=== PATIENT | male | born 1945 | race Caucasian/White ===

== ENCOUNTER 2023-03-20 06:27 | Day surgery (SDC) | payer OTHER ==
[2023-03-05 12:14] LABS: Absolute Lymphocytes (CBC) 1.5 K/uL (0.7-4.9); Hematocrit 45.1 % (39.6-49.0); Lymphocytes % 22.3 % (15.3-44.8); MCV 90.2 fL (80-100); MPV 8.8 fL (7.6-11.3); Platelets 140 thou/uL (152-406)
[2023-03-05 12:24] LABS: Protime INR 1.01
[2023-03-05 12:32] LABS: Potassium 4.1 mEq/L (3.5-5.1)
--- NOTE | 2023-03-05 12:38 | RAD REPORT ---
EXAM DESCRIPTION: Sidney Rodriguez (2 Views)03/05/2023 12:12 pm CLINICAL HISTORY: Preop. Hypertension COMPARISON: 2017 FINDINGS: A few areas of scarring are present within the lung bases. The lungs appear clear of acute infiltrate. The heart is normal size IMPRESSION: No acute abnormalities displayed
--- NOTE | 2023-03-07 16:56 | EKG ---
Test Date: 2023-03-05 Test Time: 12:49:24 Warehouse And Receiving Supervisor: JOANIE MEASUREMENT RESULTS: Intervals: Rate: 85 NC: 146 QRSD: 80 QT: 368 QTc: 437 [place]: P: 65 NC: 146 QRS: -8 T: 69 INTERPRETIVE STATEMENTS: Normal sinus rhythm Normal ECG Compared to ECG 09/23/2016 16:49:02 No significant changes Electronically Signed On 03-07-23 16:52:05 CUSTOMER SERVICE VOICE by Tony Escobar
[2023-03-20] MEDS ORDERED: NA CHLORIDE 0.9% 1,000 ML ONE (06:59)
[2023-03-20] MEDS ORDERED: propofoL 200 MG/20 ML VIAL IV ONE (07:00)
[2023-03-20] MEDS ORDERED: LIDOCAINE 1% MPF 5 ML VIAL ONE (07:00)
[2023-03-20] MEDS ORDERED: FENTANYL CITR 100 MCG/2 ML ONE (07:00)
[2023-03-20] MEDS ORDERED: ONDANSETRON 4 MG/2 ML VIAL ONE (07:00)
[2023-03-20] MEDS: CEFAZOLIN SODIUM 2 GM/VIAL ONE ×2 (07:48→07:50)
[2023-03-20] MEDS ORDERED: EPHEDRINE SULF 50 MG/ML VIAL ONE (08:01)
--- NOTE | 2023-03-20 09:17 | OP ---
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 Principal Procedures: 1.Transrectal ultrasound-guided placement of fiducial markers. 2.Transrectal ultrasound-guided incomplete insertion of SpaceOAR gel. Indication For Procedure: Mr. Li is a 77-year-old gentleman who presented to the [facility] with an elevated PSA and underwent biopsy revealing high-risk adenocarcinoma of the prostate, Gleaso n 4 + 4. He was counseled on options and ultimately elected to proceed with radiation therapy, and f iducial markers were requested along with SpaceOAR gel insertion in preparation. Procedure In Detail: The patient was consented in the preoperative holding area before being transfe rred to the operative suite, where general anesthesia was induced. He was given Ancef 2 g IV antimic robial prophylaxis, and pneumo boots were provided for DVT prophylaxis. He was placed in the high li thotomy position, padded and secured to the table appropriately. His genitalia were elevated out of the perineal region using an Ioban drape, and his perineum was prepped with Betadine. The transrecta l ultrasound probe had been inserted via his anus into his rectum free hand with ease and the prostat e was visualized. The self-retaining Stepper device was used to hold the ultrasound probe in the paige ired position, where I was able to visualize the prostate from the perineal region all the way to the seminal vesicles and the bladder neck in both axial as well as sagittal dimensions. I then began th e case using a fiducial marker, which was placed via the left periurethral region and it was placed u nder direct ultrasound visualization and guidance into the anterior portion of the left laurie-prostate in the mid gland region. Once this was successfully placed, I similarly targeted the right laurie-pro state in the mid gland anterior region also and placed a second fiducial marker on that side. I then turned my attention to placement of these SpaceOAR gel and begun with the SpaceOAR needle cristal ched to a syringe of normal saline. I was able to guide the needle into the prerectal fat plane unde r ultrasound guidance taking care to avoid entry into the rectum until I was able to reach the mid ba se region of the prostate as visualized in the sagittal dimension. I then switched to the axial dime nsion to confirm the needle was indeed placed in the midline before aspirating and receiving no blood or succus. I then hydrodissected a bit with saline, and while the saline did dissect largely in the midline, some of it did fall off to the patient's left side a bit. As a result, I attempted to repo sition the needle and hydrodissect to open the space a bit more to the patient's right side before ul timately connecting the SpaceOAR injection components and beginning to inject the SpaceOAR gel. Unfo rtunately, about one-third [address] way into the injection process, the device component fell apart, wh ich prohibited simultaneous continuous injection of the material and resulted in the gel freezing wit hin the delivery device and needle. Only about a third of the gel did successfully insert between th e base of the prostate and the rectum as visualized ultrasonographically. However, at this point, be cause the ultrasound topographical references were now distorted, and since the needle itself which w as in proper position was clogged with the gel, further attempts to place any additional SpaceOAR gel were unwise; so I removed the needle and did not make any further effort at SpaceOAR gel insertion. As a result, the patient was then cleansed of the Betadine from his perineum, and he was taken out o f the lithotomy position. He was then awakened from general anesthesia before being transferred to a stretcher and then transferred to the recovery room in good condition. Complications: Technical failure in the composition/putting together of the SpaceOAR gel kit, result ing in inability to adequately insert the SpaceOAR gel. Discharge Disposition: Subsequent radiation oncology simulation may proceed to see if potentially si nce a third of the gel was inserted, there will be adequate buffer for continuation of the radiation oncology without significant enhanced risk to the rectum. If inadequate SpaceOAR gel insertion, consideration must be given to repeat attempt at some point down t he line. WR/MODL Voice ID: [id number] Report ID: [id number]
[2023-03-20 10:04] VITALS: BP 128/73; TEMP 97; O2SAT 97
== END 2023-03-20 09:43 | disposition home or self-care (01) ==
LOC: OR 06:27
PROVIDERS: ATTEND Urology
PROC: 0VH43YZ Insertion of Other Device into Prostate and Seminal Vesicles, Percutaneous Approach (ICD-10-PCS; principal; 2023-03-20 07:30)
DX: C61 Malignant neoplasm of prostate (principal); E11.9 Type 2 diabetes mellitus without complications; I10 Essential (primary) hypertension; E78.00 Pure hypercholesterolemia, unspecified
CPT/HCPCS: 93005; 87088; 85025; 87086; 80048; 36415; 85610; 82947 ×2; 71046; 55874; J2704; J2001; J3010; J2405; J7030

== ENCOUNTER 2023-04-10 06:20 | Day surgery (SDC) | payer OTHER ==
[2023-04-10] MEDS ORDERED: NA CHLORIDE 0.9% 1,000 ML ONE (06:56)
[2023-04-10] MEDS ORDERED: CEFAZOLIN SODIUM 2 GM/VIAL ONE (06:56)
[2023-04-10] MEDS ORDERED: LIDOCAINE 1% MPF 5 ML VIAL ONE (07:37)
[2023-04-10] MEDS ORDERED: propofoL 200 MG/20 ML VIAL IV ONE (07:37)
[2023-04-10] MEDS ORDERED: FENTANYL CITR 100 MCG/2 ML ONE (07:39)
[2023-04-10] MEDS ORDERED: ONDANSETRON 4 MG/2 ML VIAL ONE (07:54)
[2023-04-10 08:48] VITALS: BP 131/87; TEMP 97.4; O2SAT 97
--- NOTE | 2023-04-10 19:31 | OP ---
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 Principal Procedures: Transrectal ultrasonography and transrectal ultrasound-guided SpaceOAR inserti on. Indication For Procedure: This is a 77-year-old gentleman with elevated PSA, diagnosed and found to have high-risk adenocarcinoma of the prostate. He was counseled and ultimately elected radiation the rapy and was desired to have SpaceOAR gel implantation prior to the procedure. He was previously her e and underwent fiducial markers placement as well as SpaceOAR gel insertion, but the procedure was i ncomplete due to failure of the device during insertion. As a result, only about half of the gel was inserted and largely emanated on the patient's left side of the prostate. As a result, the radiatio n oncologist desired repeat SpaceOAR gel insertion and he presents today for that. Procedure In Detail: The patient was consented in the preoperative holding area before being transfe rred to the operative suite where general anesthesia was induced. He was given Ancef 2 g IV antimicr obial prophylaxis, and pneumo boots were provided for DVT prophylaxis. He was placed in the lithotom y position, padded and secured to the table appropriately. His genitalia were elevated out of the pe rineal region using an Ioban drape, and then the transrectal ultrasound probe was placed via his anus into his rectum under direct visualization ultrasonographically. I then used the Stepper device to hold the ultrasound in place and used it to appropriately position the prostate and visualize it from its apex to the seminal vesicles and the bladder. I then targeted visualization in the transverse d imension sagittally to place the injection needle via the perineum beneath the urethra and into the p rerectal fat plane targeting the patient's right side laurie-prostate just next to the midline. I was able to advance the needle in that plane into the mid base region and there was ideal positioning of the needle just lateral to the midline on the right where the pre-placed SpaceOAR gel from before was largely emanating on the left. As a result, I aspirated in that region and received no sign of bloo d or succus or air, and then injected half a cc of saline which did nicely hydrodissect and largely e manate toward the patient's right side. I then connected the SpaceOAR gel insertion component and sl owly injected them under ultrasound guidance to visualize the gel to fill the entirety of the space i nvolving the midline and the right laurie-prostate it from the rectum beautifully. I thus r emoved the needle and applied pressure to the perineum for a slight degree of oozing in that location . The patient was then taken out of the lithotomy position, awakened from general anesthesia, transf erred to a stretcher, and then transferred to the recovery room in good condition. Complications: None. Discharge Disposition: He will be standard pathway following up in 3 to 6 months after completion of his radiation therapy. CHELSY/ALLEN Voice ID: [id number] Report ID: [id number]
== END 2023-04-10 09:40 | disposition home or self-care (01) ==
LOC: OR 06:20
PROVIDERS: ATTEND Urology
PROC: 0VH43YZ Insertion of Other Device into Prostate and Seminal Vesicles, Percutaneous Approach (ICD-10-PCS; principal; 2023-04-10 07:30)
DX: C61 Malignant neoplasm of prostate (principal); E11.9 Type 2 diabetes mellitus without complications; I10 Essential (primary) hypertension; E78.00 Pure hypercholesterolemia, unspecified
CPT/HCPCS: 82947 ×2; 55874; J2704; J2001; J3010; J2405; J7030

== ENCOUNTER 2024-02-01 06:02 | Day surgery (SDC) | payer OTHER ==
[2024-01-28 10:52] LABS: Absolute Eosinophils 0.3 K/uL (0-0.5); Absolute Lymphocytes (CBC) 0.6 K/uL (0.7-4.9); Absolute Monocytes 0.5 K/uL (0.1-1.3); Basophils % 0.3 % (0-1.3); Eosinophils % 5.2 % (0-4.4); Hematocrit 35.5 % (39.6-49.0); Hemoglobin 11.6 g/dL (13.6-17.9); MCHC 32.8 g/dL (32.0-36.0); MCV 88.5 fL (80-100); Monocytes % 9.5 % (3.3-12.3); Nucleated Red Blood Cells % 0.1 % (0-0); Platelets 201 thou/uL (152-406); RBC Red Blood Cell Count 4.01 M/uL (4.33-5.43); Red Cell Distribution Width 16.4 % (12.1-15.2)
[2024-01-28 10:56] LABS: PT Prothrombin Time 11.5 SECONDS (9.4-12.5); PTT, Activated Partial Thromb 32.3 SECONDS (24.3-36.9); Protime INR 1.03
[2024-01-28 11:01] LABS: Anion Gap 9.4 mEq/L (5.0-15.0); Potassium 4.4 mEq/L (3.5-5.1)
--- NOTE | 2024-01-31 09:14 | RAD REPORT ---
EXAMINATION: TWO VIEW CHEST XR CLINICAL INDICATION: pre op pending rotator cuff repair TECHNIQUE: 2 views of the chest was performed. COMPARISON: 03/05/2023 FINDINGS: The lungs are hyperexpanded suggesting COPD. The heart is upper limit of normal in size. No displaced fractures evident. IMPRESSION: COPD is suspected without acute finding identified. The USPSTF recommends annual screening for lung cancer with low-dose computed tomography (LDCT) in ad ults aged 50 to 80 years who have a 20 pack-year smoking history and currently smoke or have quit within the past 15 years. Screening should be discontinued once a person has not smoked for 15 years or develops a health problem that substantially limits life expectancy or the ability or willingness to have curative lung surgery.
--- NOTE | 2024-01-31 12:04 | EKG ---
Test Date: 2024-01-28 Test Time: 10:25:42 Hearing Aid Consultant: MELBA MEASUREMENT RESULTS: Intervals: Rate: 73 ME: 146 QRSD: 84 QT: 404 QTc: 445 [place]: P: 44 ME: 146 QRS: -3 T: 40 INTERPRETIVE STATEMENTS: Normal sinus rhythm with sinus arrhythmia Low voltage QRS Borderline ECG Compared to ECG 03/05/2023 12:49:24 Low QRS voltage now present Electronically Signed On 01-31-24 11:56:13 CDT by Cheko Blackmon
[2024-02-01] MEDS ORDERED: CEFAZOLIN SODIUM 2 GM/VIAL ONE (06:18)
[2024-02-01] MEDS: NA CHLORIDE 0.9% 1,000 ML ONE (06:30)
[2024-02-01] MEDS: DEXTROSE 10%-WATER 500 ML IV ONE (06:46)
[2024-02-01] MEDS ORDERED: dexAMETHasone 10 MG/ML VIAL ONE ×2 (07:12→08:17)
[2024-02-01] MEDS ORDERED: LIDOCAINE 1% MPF 5 ML VIAL ONE (07:12)
[2024-02-01] MEDS ORDERED: EPINEPHRINE 1 MG/ML VIAL ONE (07:13)
[2024-02-01] MEDS ORDERED: FENTANYL CITR 100 MCG/2 ML ONE (07:13)
[2024-02-01] MEDS ORDERED: propofoL 200 MG/20 ML VIAL IV ONE (07:18)
[2024-02-01] MEDS ORDERED: LIDOCAINE 2% MPF 5 ML VIAL ONE (07:18)
[2024-02-01] MEDS ORDERED: ONDANSETRON 4 MG/2 ML VIAL ONE (07:47)
[2024-02-01] MEDS ORDERED: ROCURONIUM 50 MG/5 ML VIAL IV ONE (07:48)
[2024-02-01] MEDS ORDERED: SUGAMMADEX SODIUM 200 MG/2 ML VIAL IV ONE (07:54)
[2024-02-01] MEDS ORDERED: EPHEDRINE SULF 50 MG/ML VIAL ONE (08:24)
[2024-02-01] MEDS: EPINEPHRINE 1 MG/ML VIAL ONE (08:50)
--- NOTE | 2024-02-01 10:14 | P.BOP ---
Preoperative diagnosis: Left shoulder rotator cuff tear, biceps tendinitis, impingement syndrome Postoperative diagnosis: Same, left shoulder SLAP tear Primary procedure: Left shoulder arthroscopic rotator cuff repair Secondary procedure: Left shoulder arthroscopic biceps tenotomy with SLAP debridement Other procedure(s): Left shoulder scopic subacromial decompression Merchandise Pickup/Receiving Associate: NONE,NONE Estimated blood loss: 10 cc Specimen: None Findings: See dictation Anesthesia: General Complications: None Implants: Arthrex 4.75 mm swivel lock x 2 Fluids & blood products: Per anesthesia record Transferred to: Recovery Room Condition: Good
--- NOTE | 2024-02-01 11:00 | RAD REPORT ---
EXAM:Shoulder 1 View HISTORY: S/P ROTATOR CUFF REPAIR COMPARISON: None FINDINGS/IMPRESSION: Single frontal projection submitted of the left shoulder. Moderate soft tissue s welling is seen. Mild degenerative changes are present AC joint glenohumeral joint. No unexpected immediate postoperative finding.
[2024-02-01 11:01] VITALS: O2SAT 95
[2024-02-01 13:18] VITALS: BP 146/84; TEMP 97.3
== END 2024-02-01 12:00 | disposition home or self-care (01) ==
LOC: OR 06:02
PROVIDERS: ATTEND Orthopaedic Surgery Sports Medicine
PROC: 0RJK4ZZ Inspection of Left Shoulder Joint, Percutaneous Endoscopic Approach (ICD-10-PCS; principal; 2024-02-01 08:00)
DX: S46.012A Strain of muscle(s) and tendon(s) of the rotator cuff of left shoulder, initial encounter (principal); M75.22 Bicipital tendinitis, left shoulder; M75.42 Impingement syndrome of left shoulder; I10 Essential (primary) hypertension; E11.9 Type 2 diabetes mellitus without complications; E78.00 Pure hypercholesterolemia, unspecified; K21.9 Gastro-esophageal reflux disease without esophagitis; Z85.46 Personal history of malignant neoplasm of prostate
CPT/HCPCS: 93005; 85025; 80048; 36415; 85610; 82947 ×2; 85730; 71046; 73020; 29827; 29826; 29822; J2704; J2001 ×2; J3010; J1100 ×2; J0171 ×2; J2405; J7030

== ENCOUNTER 2025-01-26 10:58 | Emergency (ER) | payer OTHER ==
--- OUTSIDE RECORDS SUMMARY | 2025-01-26 11:04 | XMS REPORT | Continuity of Care Document ---
Author Name Unknown Address [address] [facility] [place] [address] Organization [facility] [place] Address [address] [facility] [place] [address] Care Team Providers Care Property Master Name Role Phone FREDRICK LI Primary Care Physician Unavailab Fredrick Lennon Attending Clinician Unavailable Phil Trevizo Attending Clinician Unavailable KENYA RIVERA Attending Clinician Unavailable Kenya Rivera MD Attending Clinician [phone] RAFI YATES Attending Clinician Unavailable Payers Payer Name Policy Type Policy Number Effective Date Expirati on Date Source [facility] AARP MCR Advantage (HMO-POS) [id number] 2023 00:00:00 [facility]IC[facility] ADV[facility]AGE [id number] 2020 00:00:00 Problems Condition Name Condition Details Condition Category Status Onset Date Resolution Date Last Treatment Date Treating Clinician Comments Source Preoperati ve cardiovasc ular examinatio n Preoperati ve cardiovasc ular examinatio n Disease Active 12-27 00:00: 00 [facility] Primary hypertensi on Primary hypertensi on Disease Active 12-27 00:00: [address] [facility] Prostate nodule Prostate nodule Problem [facility] BPH loc w urin obs/LUTS BPH loc w urin obs/LUTS Problem [facility] Carcinoma of prostate Carcinoma of prostate Problem [facility] Type 2 diabetes mellitus with hyperglyce martha, without long-term current use of insulin Type 2 diabetes mellitus with hyperglyce martha, without long-term current use of insulin Problem [facility] Benign prostatic hyperplasi a, unspecifie d whether lower urinary tract symptoms present Benign prostatic hyperplasi a, unspecifie d whether lower urinary tract symptoms present Problem [facility] S/P radiation > 12 weeks S/P radiation > 12 weeks Problem [facility] Malignant tumor of prostate Prostate cancer Problem [facility] Other chronic pain Other chronic pain Problem [facility] Multiple falls Multiple falls Problem [facility] Tear of left supraspina tus tendon Tear of left supraspina tus tendon Problem [facility] Incomplete emptying of bladder Incomplete emptying of bladder Problem [facility] History of gross hematuria History of gross hematuria Problem [facility] Lower urinary tract symptoms (LUTS) Lower urinary tract symptoms (LUTS) Problem [facility] Age-relate d osteoporos is Age-relate d osteoporos is without current pathologic al fracture Problem [facility] Type 2 diabetes mellitus with other specified complicati on Type 2 diabetes mellitus with other specified complicati on Problem [facility] Fear of flying Fear of flying Problem [facility] Primary malignant neoplasm of prostate with high risk of recurrence due to Mary score of 8 to 10 and PSA greater than 20 Primary malignant neoplasm of prostate with high risk of recurrence due to Layton score of 8 to 10 and PSA greater than 20 Problem [facility] Elevated PSA Elevated PSA Problem [facility] Allergies, Adverse Reactions, Alerts Allergy Name Allergy Type Status Severity Reaction(s) Onset Date Inactive Date Treating Clinician Comments Source Levoflox acin Propensi ty to adverse reaction s Active Other - See comments 12-10 00:00: 00 [facility] Sulfamet hoxazole Propensi ty to adverse reaction s Active Other - See comments 12-10 00:00: 00 [facility] LEVOFLOX ACIN DRUG INGREDI Active Other-Cmnt 12-10 00:00: 00 [facility] SULFAMET HOXAZOLE DRUG INGREDI Active Other-Cmnt 12-10 00:00: 00 [facility] levoflox acin levoflox acin Active Unknown [facility] sulfamet hoxazole / trimetho prim sulfamet hoxazole / trimetho prim Active Unknown [facility] Social History Social Habit Start Date Stop Date Quantity Comments Source [facility] History of Tobacco Use [facility] Tobacco use and exposure 2023 00:00:00 2023 00:00:00 Smokeless tobacco non-user [facility] Alcoholic beverage intake 2023 00:00:00 2023 00:00:00 Current non-drinker of alcohol (finding) [facility] History of Social function 2018-10-24 00:00:00 2018-10-24 00:00:00 [facility] Sex assigned at 1945 00:00:00 1945 00:00:00 [facility] Smoking Status Start Date Stop Date Source Never smoked tobacco [facility] Medications Ordered Medication Name Filled Medication Name Start Date Stop Date Current Medication? Ordering Clinician Indication Dosage Frequency Signature (SIG) Comments Components Source Clindamycin HCl 300 MG Clindamycin HCl 300 MG 9-17 00:00: 00 No 1{capsu le} BID Clindamyci n HCl 300 MG Colestipol HCl 1 GM Colestipol HCl 1 GM 6-24 00:00: 00 No 1{table t} BID Colestipol HCl 1 GM Uroxatral 10 MG Uroxatral 10 MG 5-0 1-15 00:00: 00 No 1{table t_at_be dtime} QD Uroxatral 10 MG relugolix (ORGOVYX) 120 mg 12-27 09:39: 56 Yes 120mg Take 120 mg by mouth once now. [facility] esomeprazol e (NEXIUM) 20 mg capsule 12-27 09:36: 12 Yes 20mg Take 20 mg by mouth daily before a meal. [facility] amLODIPine 5 mg tablet 12-27 09:35: 21 Yes 5mg Take 1 tablet by mouth in the morning. [facility] atorvastati n 20 mg tablet 12-27 09:35: 21 Yes 20mg Take 1 tablet by mouth at bedtime. [facility] omeprazole 20 mg capsule 12-27 09:35: 21 Yes 20mg Take 1 capsule by mouth in the morning. [facility] fluticasone 50 mcg/actuati on nasal spray 12-27 09:35: 21 Yes 1{spray } Use 1 Prince in each nostril in the morning. [facility] metFORMIN 500 mg tablet 12-27 09:22: 54 Yes 500mg Take 1 tablet by mouth in the morning and 1 tablet in the evening. Take with meals. [facility] glimepiride 2 mg tablet 12-27 09:22: 54 Yes 2mg Take 1 tablet by mouth in the morning and 1 tablet in the evening. [facility] SOLU-Medrol SOLU-Medrol 5-17 00:00: 00 No [facility] cefTRIAXone Sodium cefTRIAXone Sodium 7-05 00:00: 00 No 1g [facility] Lidocaine Lidocaine 2019-04 00:00: 00 No 10mg [facility] Celestone Soluspan (Betamethas one) Celestone Soluspan (Betamethas one) 2019-04 00:00: 00 No 6mg [facility] Mens 50+ Multivitami n Mens 50+ Multivitami n No Mens 50+ Multivitam in Metformin HCl 500 MG Metformin HCl 500 MG No 1{table t_with_ a_meal} BID Metformin HCl 500 MG Glimepiride 2 MG Glimepiride 2 MG No 1{table t_with_ breakfa st_or_t he_firs t_main_ meal_of _the_da y} BID Glimepirid e 2 MG Norvasc 5 MG Norvasc 5 MG No 1{table t} QD Norvasc 5 MG Orgovyx 120 MG Orgovyx 120 MG No 1{table t} QD Orgovyx 120 MG ZyrTEC 10 MG ZyrTEC 10 MG No 1{table t} QD ZyrTEC 10 MG NexIUM 20 MG NexIUM 20 MG No 1{capsu le} QD NexIUM 20 MG Furosemide 40 MG Furosemide 40 MG No 1{table t} QD Furosemide 40 MG Accu-Chek Guide Test - Accu-Chek Guide Test - No QD Accu-Chek Guide Test - Diclofenac Sodium 1 % Diclofenac Sodium 1 % No QD Diclofenac Sodium 1 % Atorvastati n Calcium 20 MG Atorvastati n Calcium 20 MG No 1{table t} QD Atorvastat in Calcium 20 MG Lancets - Lancets - No Lancets - Losartan Potassium 25 MG Losartan Potassium 25 MG No 1{table t} QD Losartan Potassium 25 MG Immunizations Ordered Immunization Name Filled Immunization Name Date Status Comments Source SARS-COV-2 COVID-19 PFIZER VACCINE Unknown Completed [facility] Influenza Virus Vaccine,quad Im,preserve Free 65+ (FLUAD) Unknown Completed [facility] Vital Signs Vital Name Observation Time Observation Value Comments S ource height 2024-12-31 10:30:00 69 [in_i] Commo n [facility] weight 2024-12-31 10:30:00 166.0 [lb_av] Co mmon [facility] temperature 2024-12-31 10:30:00 97.6 [degF] Com mon [facility] bmi 2024-12-31 10:30:00 24.51 kg/m2 Comm on [facility] oximetry 2024-12-31 10:30:00 98 % Commo [facility] respiratory rate 2024-12-31 10:30:00 16 /min [facility] blood pressure systolic 2024-12-31 10:30:00 133 mm[Hg] [facility] blood pressure diastolic 2024-12-31 10:30:00 81 mm[Hg] [facility] 2024-11-11 13:00:00 69 [in_i] Commo n [facility] weight 2024-11-11 13:00:00 165.8 [lb_av] Co [facility] temperature 2024-11-11 13:00:00 97.2 [degF] Com mon [facility] bmi 2024-11-11 13:00:00 24.48 kg/m2 Comm on [facility] oximetry 2024-11-11 13:00:00 99 % Commo n [facility] blood pressure systolic 2024-11-11 13:00:00 138 mm[Hg] [facility] blood pressure diastolic 2024-11-11 13:00:00 80 mm[Hg] [facility] height 2024-10-07 14:20:00 69 [in_i] Commo n [facility] weight 2024-10-07 14:20:00 164.0 [lb_av] Co [facility] temperature 2024-10-07 14:20:00 97.0 [degF] Com mon [facility] bmi 2024-10-07 14:20:00 24.22 kg/m2 Comm on [facility] oximetry 2024-10-07 14:20:00 97 % Commo n [facility] respiratory rate 2024-10-07 14:20:00 16 /min [facility] blood pressure systolic 2024-10-07 14:20:00 130 mm[Hg] [facility] blood pressure diastolic 2024-10-07 14:20:00 82 mm[Hg] [facility] height 2024-09-30 10:45:00 69 [in_i] Commo n [facility] weight 2024-09-30 10:45:00 166.8 [lb_av] Co on [facility] temperature 2024-09-30 10:45:00 97.8 [degF] Com [facility] bmi 2024-09-30 10:45:00 24.63 kg/m2 Comm on [facility] oximetry 2024-09-30 10:45:00 95 % Commo n [facility] height 2024-09-30 10:45:00 69 [in_i] Commo n [facility] weight 2024-09-30 10:45:00 166.8 [lb_av] Co on [facility] temperature 2024-09-30 10:45:00 97.8 [degF] Com [facility] bmi 2024-09-30 10:45:00 24.63 kg/m2 Comm on [facility] oximetry 2024-09-30 10:45:00 95 % Commo n [facility] height 2024-08-28 10:00:00 69 [in_i] Commo n [facility] weight 2024-08-28 10:00:00 166 [lb_av] Comm on [facility] temperature 2024-08-28 10:00:00 97.2 [degF] Com [facility] bmi 2024-08-28 10:00:00 24.51 kg/m2 Comm on [facility] oximetry 2024-08-28 10:00:00 94 % Commo n [facility] respiratory rate 2024-08-28 10:00:00 16 /min [facility] blood pressure systolic 2024-08-28 10:00:00 110 mm[Hg] [facility] blood pressure diastolic 2024-08-28 10:00:00 65 mm[Hg] Common [facility] height 2024-06-30 10:30:00 69 [in_i] Commo n [facility] weight 2024-06-30 10:30:00 168.4 [lb_av] Co mmon [facility] temperature 2024-06-30 10:30:00 98.2 [degF] Com mon [facility] bmi 2024-06-30 10:30:00 24.87 kg/m2 Comm on [facility] oximetry 2024-06-30 10:30:00 95 % Commo n [facility] blood pressure systolic 2024-06-30 10:30:00 113 mm[Hg] Common [facility] blood pressure diastolic 2024-06-30 10:30:00 75 mm[Hg] Common [facility] height 2024-06-05 10:00:00 69 [in_i] Commo n [facility] weight 2024-06-05 10:00:00 175 [lb_av] Comm on [facility] temperature 2024-06-05 10:00:00 98.0 [degF] Com [facility] bmi 2024-06-05 10:00:00 25.84 kg/m2 Comm on [facility] blood pressure systolic 2024-06-05 10:00:00 127 mm[Hg] [facility] blood pressure diastolic 2024-06-05 10:00:00 69 mm[Hg] Common [facility] height 2024-04-30 10:00:00 69 [in_i] Commo n [facility] weight 2024-04-30 10:00:00 169.0 [lb_av] Co mmon [facility] temperature 2024-04-30 10:00:00 96.7 [degF] Com [facility] bmi 2024-04-30 10:00:00 24.95 kg/m2 Comm on [facility] oximetry 2024-04-30 10:00:00 93 % Commo n [facility] respiratory rate 2024-04-30 10:00:00 18 /min [facility] blood pressure systolic 2024-04-30 10:00:00 127 mm[Hg] [facility] blood pressure diastolic 2024-04-30 10:00:00 69 mm[Hg] [facility] height 2024-04-24 10:00:00 69 [in_i] Commo n [facility] weight 2024-04-24 10:00:00 165 [lb_av] Comm on [facility] temperature 2024-04-24 10:00:00 98.4 [degF] Com [facility] bmi 2024-04-24 10:00:00 24.36 kg/m2 Comm on [facility] blood pressure systolic 2024-04-24 10:00:00 136 mm[Hg] [facility] blood pressure diastolic 2024-04-24 10:00:00 84 mm[Hg] [facility] height 2024-04-01 10:40:00 69 [in_i] Commo n [facility] weight 2024-04-01 10:40:00 165.4 [lb_av] Co mmon [facility] temperature 2024-04-01 10:40:00 97.8 [degF] Com mon [facility] bmi 2024-04-01 10:40:00 24.42 kg/m2 Comm on [facility] oximetry 2024-04-01 10:40:00 97 % Commo n [facility] respiratory rate 2024-04-01 10:40:00 16 /min [facility] blood pressure systolic 2024-04-01 10:40:00 146 mm[Hg] [facility] blood pressure diastolic 2024-04-01 10:40:00 78 mm[Hg] [facility] height 2024-03-18 10:30:00 69 [in_i] Commo n [facility] weight 2024-03-18 10:30:00 172 [lb_av] Comm on [facility] temperature 2024-03-18 10:30:00 98.6 [degF] Com mon [facility] bmi 2024-03-18 10:30:00 25.4 kg/m2 Commo n [facility] blood pressure systolic 2024-03-18 10:30:00 128 mm[Hg] [facility] blood pressure diastolic 2024-03-18 10:30:00 76 mm[Hg] Common [facility] height 2024-02-19 09:40:00 69 [in_i] Commo n [facility] weight 2024-02-19 09:40:00 172.4 [lb_av] Co mmon [facility] temperature 2024-02-19 09:40:00 97.0 [degF] Com [facility] bmi 2024-02-19 09:40:00 25.46 kg/m2 Comm on [facility] oximetry 2024-02-19 09:40:00 95 % Commo n [facility] respiratory rate 2024-02-19 09:40:00 16 /min [facility] blood pressure systolic 2024-02-19 09:40:00 129 mm[Hg] [facility] blood pressure diastolic 2024-02-19 09:40:00 74 mm[Hg] [facility] [place] 2024-02-18 14:30:00 69 [in_i] Commo n [facility] weight 2024-02-18 14:30:00 167 [lb_av] Comm on [facility] temperature 2024-02-18 14:30:00 98.6 [degF] Com [facility] bmi 2024-02-18 14:30:00 24.66 kg/m2 Comm on [facility] blood pressure systolic 2024-02-18 14:30:00 115 mm[Hg] [facility] blood pressure diastolic 2024-02-18 14:30:00 60 mm[Hg] [facility] height 2024-02-04 10:00:00 69 [in_i] Commo n [facility] weight 2024-02-04 10:00:00 167 [lb_av] Comm on [facility] temperature 2024-02-04 10:00:00 98.4 [degF] Com mon [facility] bmi 2024-02-04 10:00:00 24.66 kg/m2 Comm on [facility] blood pressure systolic 2024-02-04 10:00:00 124 mm[Hg] [facility] blood pressure diastolic 2024-02-04 10:00:00 74 mm[Hg] [facility] height 2024-01-14 09:15:00 69 [in_i] Commo n [facility] weight 2024-01-14 09:15:00 167 [lb_av] Comm on [facility] bmi 2024-01-14 09:15:00 24.66 kg/m2 Comm on [facility] blood pressure systolic 2024-01-14 09:15:00 123 mm[Hg] [facility] blood pressure diastolic 2024-01-14 09:15:00 65 mm[Hg] [facility] height 2024-01-07 13:20:00 69 [in_i] Commo n [facility] weight 2024-01-07 13:20:00 167.4 [lb_av] Co mmon [facility] temperature 2024-01-07 13:20:00 98.2 [degF] Com mon [facility] bmi 2024-01-07 13:20:00 24.72 kg/m2 Comm on [facility] oximetry 2024-01-07 13:20:00 93 % Commo n [facility] respiratory rate 2024-01-07 13:20:00 16 /min [facility] blood pressure systolic 2024-01-07 13:20:00 126 mm[Hg] [facility] blood pressure diastolic 2024-01-07 13:20:00 73 mm[Hg] [facility] Systolic blood pressure 2023 14:41:00 155 mm[Hg] [facility] Diastolic blood pressure 2023 14:41:00 101 mm[Hg] [facility] Heart rate 2023 14:41:00 102 /min [facility] Respiratory rate 2023 14:35:00 18 /min [facility] Body height 2023 14:35:00 175.3 cm [facility] Body weight 2023 14:35:00 76.749 kg [facility] BMI 2023 14:35:00 24.99 kg/m2 [facility] Oxygen saturation in Arterial blood by Pulse oximetry 2023 14:35:00 95 /min [facility] height 2023-12-18 11:20:00 69 [in_i] Commo n [facility] weight 2023-12-18 11:20:00 172.2 [lb_av] Co mmon [facility] temperature 2023-12-18 11:20:00 97.8 [degF] Com mon [facility] bmi 2023-12-18 11:20:00 25.43 kg/m2 Comm on [facility] oximetry 2023-12-18 11:20:00 96 % Commo n [facility] respiratory rate 2023-12-18 11:20:00 16 /min [facility] blood pressure systolic 2023-12-18 11:20:00 128 mm[Hg] [facility] blood pressure diastolic 2023-12-18 11:20:00 75 mm[Hg] [facility] height 2023-11-29 14:00:00 69 [in_i] Commo n [facility] weight 2023-11-29 14:00:00 172 [lb_av] Comm on [facility] temperature 2023-11-29 14:00:00 97.2 [degF] Com mon [facility] bmi 2023-11-29 14:00:00 25.4 kg/m2 Commo n [facility] blood pressure systolic 2023-11-29 14:00:00 122 mm[Hg] [facility] blood pressure diastolic 2023-11-29 14:00:00 76 mm[Hg] [facility] height 2023-10-29 14:00:00 69 [in_i] Commo n [facility] weight 2023-10-29 14:00:00 168.8 [lb_av] Co mmon [facility] temperature 2023-10-29 14:00:00 97.2 [degF] Com [facility] bmi 2023-10-29 14:00:00 24.92 kg/m2 Comm on [facility] oximetry 2023-10-29 14:00:00 94 % Commo n [facility] respiratory rate 2023-10-29 14:00:00 16 /min [facility] blood pressure systolic 2023-10-29 14:00:00 107 mm[Hg] [facility] blood pressure diastolic 2023-10-29 14:00:00 68 mm[Hg] [facility] [place] 2023-10-29 14:00:00 69 [in_i] Commo n [facility] weight 2023-10-29 14:00:00 168.8 [lb_av] Co mmon [facility] temperature 2023-10-29 14:00:00 97.2 [degF] Com mon [facility] bmi 2023-10-29 14:00:00 24.92 kg/m2 Comm on [facility] oximetry 2023-10-29 14:00:00 94 % Commo n [facility] respiratory rate 2023-10-29 14:00:00 16 /min [facility] blood pressure systolic 2023-10-29 14:00:00 107 mm[Hg] [facility] blood pressure diastolic 2023-10-29 14:00:00 68 mm[Hg] Common [facility] height 2023-10-15 15:40:00 69 [in_i] Commo n [facility] weight 2023-10-15 15:40:00 175.6 [lb_av] Co mmon [facility] temperature 2023-10-15 15:40:00 97.8 [degF] Com [facility] bmi 2023-10-15 15:40:00 25.93 kg/m2 Comm on [facility] oximetry 2023-10-15 15:40:00 95 % Commo n [facility] respiratory rate 2023-10-15 15:40:00 16 /min Common [facility] blood pressure systolic 2023-10-15 15:40:00 136 mm[Hg] [facility] blood pressure diastolic 2023-10-15 15:40:00 80 mm[Hg] [facility] height 2023-08-31 09:20:00 69 [in_i] Commo n [facility] weight 2023-08-31 09:20:00 171.5 [lb_av] Co mmon [facility] temperature 2023-08-31 09:20:00 97.4 [degF] Com [facility] bmi 2023-08-31 09:20:00 25.32 kg/m2 Comm on [facility] oximetry 2023-08-31 09:20:00 96 % Commo n [facility] respiratory rate 2023-08-31 09:20:00 16 /min [facility] blood pressure systolic 2023-08-31 09:20:00 148 mm[Hg] [facility] blood pressure diastolic 2023-08-31 09:20:00 86 mm[Hg] [facility] [place] 2023-08-29 10:45:00 69 [in_i] Commo n [facility] weight 2023-08-29 10:45:00 170.8 [lb_av] Co [facility] temperature 2023-08-29 10:45:00 97.8 [degF] Com [facility] bmi 2023-08-29 10:45:00 25.22 kg/m2 Comm on [facility] oximetry 2023-08-29 10:45:00 95 % Commo n [facility] respiratory rate 2023-08-29 10:45:00 18 /min [facility] blood pressure systolic 2023-08-29 10:45:00 147 mm[Hg] [facility] blood pressure diastolic 2023-08-29 10:45:00 75 mm[Hg] [facility] [place] 2023-08-17 13:40:00 69 [in_i] Commo n [facility] weight 2023-08-17 13:40:00 170.6 [lb_av] Co [facility] temperature 2023-08-17 13:40:00 97.3 [degF] Com [facility] bmi 2023-08-17 13:40:00 25.19 kg/m2 Comm on [facility] oximetry 2023-08-17 13:40:00 94 % Commo n [facility] respiratory rate 2023-08-17 13:40:00 16 /min Common [facility] blood pressure systolic 2023-08-17 13:40:00 117 mm[Hg] [facility] blood pressure diastolic 2023-08-17 13:40:00 76 mm[Hg] [facility] height 2023-07-18 11:00:00 69 [in_i] Commo n [facility] weight 2023-07-18 11:00:00 175.6 [lb_av] Co mmon [facility] temperature 2023-07-18 11:00:00 97.4 [degF] Com [facility] bmi 2023-07-18 11:00:00 25.93 kg/m2 Comm on [facility] oximetry 2023-07-18 11:00:00 96 % Commo n [facility] respiratory rate 2023-07-18 11:00:00 17 /min [facility] blood pressure systolic 2023-07-18 11:00:00 127 mm[Hg] Common [facility] t [facility] blood pressure diastolic 2023-07-18 11:00:00 64 mm[Hg] Common [facility] height 2023-04-20 09:45:00 69 [in_i] Commo n [facility] weight 2023-04-20 09:45:00 163 [lb_av] Comm on [facility] temperature 2023-04-20 09:45:00 97.2 [degF] Com mon [facility] bmi 2023-04-20 09:45:00 24.07 kg/m2 Comm on [facility] oximetry 2023-04-20 09:45:00 97 % Commo n [facility] respiratory rate 2023-04-20 09:45:00 18 /min Common [facility] blood pressure systolic 2023-04-20 09:45:00 200 mm[Hg] [facility] blood pressure diastolic 2023-04-20 09:45:00 91 mm[Hg] Common [facility] height 2023-01-17 11:15:00 69 [in_i] Commo n [facility] weight 2023-01-17 11:15:00 172 [lb_av] Comm on [facility] temperature 2023-01-17 11:15:00 97.7 [degF] Com [facility] bmi 2023-01-17 11:15:00 25.4 kg/m2 Commo n [facility] oximetry 2023-01-17 11:15:00 96 % Commo n [facility] respiratory rate 2023-01-17 11:15:00 17 /min [facility] blood pressure systolic 2023-01-17 11:15:00 157 mm[Hg] Common [facility] blood pressure diastolic 2023-01-17 11:15:00 85 mm[Hg] Common [facility] height 2022-11-15 10:30:00 69 [in_i] Commo n [facility] weight 2022-11-15 10:30:00 174 [lb_av] Comm on [facility] temperature 2022-11-15 10:30:00 98.1 [degF] Com mon [facility] bmi 2022-11-15 10:30:00 25.69 kg/m2 Comm on [facility] oximetry 2022-11-15 10:30:00 92 % Commo n [facility] respiratory rate 2022-11-15 10:30:00 16 /min [facility] blood pressure systolic 2022-11-15 10:30:00 149 mm[Hg] Common [facility] blood pressure diastolic 2022-11-15 10:30:00 84 mm[Hg] [facility] height 2022-08-17 13:15:00 69 [in_i] Commo n [facility] weight 2022-08-17 13:15:00 176.8 [lb_av] Co on [facility] temperature 2022-08-17 13:15:00 97.4 [degF] Com [facility] bmi 2022-08-17 13:15:00 26.11 kg/m2 Comm on [facility] oximetry 2022-08-17 13:15:00 99 % Commo n [facility] respiratory rate 2022-08-17 13:15:00 18 /min Common [facility] blood pressure systolic 2022-08-17 13:15:00 119 mm[Hg] Common [facility] blood pressure diastolic 2022-08-17 13:15:00 75 mm[Hg] Common [facility] height 2022-03-30 13:45:00 69 [in_i] Commo n [facility] weight 2022-03-30 13:45:00 177.6 [lb_av] Co [facility] temperature 2022-03-30 13:45:00 97.6 [degF] Com [facility] bmi 2022-03-30 13:45:00 26.22 kg/m2 Comm on [facility] oximetry 2022-03-30 13:45:00 97 % Commo n [facility] respiratory rate 2022-03-30 13:45:00 16 /min Common [facility] blood pressure systolic 2022-03-30 13:45:00 109 mm[Hg] Common [facility] blood pressure diastolic 2022-03-30 13:45:00 67 mm[Hg] Common [facility] height 2022-02-01 14:30:00 69 [in_i] Commo n [facility] weight 2022-02-01 14:30:00 176.4 [lb_av] Co mmon [facility] temperature 2022-02-01 14:30:00 97.7 [degF] Com mon [facility] bmi 2022-02-01 14:30:00 26.05 kg/m2 Comm on [facility] oximetry 2022-02-01 14:30:00 97 % Commo n [facility] respiratory rate 2022-02-01 14:30:00 16 /min [facility] blood pressure systolic 2022-02-01 14:30:00 109 mm[Hg] [facility] blood pressure diastolic 2022-02-01 14:30:00 65 mm[Hg] [facility] Procedures Procedure Date / Time Performed Performing Clinicia n Source PVR 2024-08-28 00:00:00 [facility] PVR 2024-04-30 00:00:00 [facility] PVR 2023-08-29 00:00:00 [facility] Encounters Start Date/Time End Date/Time Encounter Type Admission Type Attending Clinicians Care Facility Care Department Encounter ID Source 2024-06-26 08:34:01 Outpatient Fredrick Li [facility] [id number] [facility] 2024-06-20 11:12:00 Outpatient Fredrick Li [facility] [id number] [facility] 2023-12-10 15:38:01 Outpatient Fredrick Li [facility] [id number] [facility] 2023-11-29 15:46:00 Outpatient Fredrick Li [facility] [id number] [facility] 2023-10-11 10:07:00 Outpatient Fredrick Li [facility] [id number] [facility] 2023-08-29 16:18:00 Outpatient Fredrick Li [facility] [id number] [facility] 2023-08-15 08:28:00 Outpatient Fredrick Li [facility] [id number] [facility] 2023-07-18 10:45:00 Outpatient Fredrick Li [facility] [id number] [facility] 2023-07-17 10:10:00 Outpatient Fredrick Li [facility] [id number] [facility] 2023-02-26 09:49:01 Outpatient Phil Trevizo [facility] [id number] [facility] 2022-10-18 11:20:00 Outpatient Phil Trevizo [facility] [id number] [facility] 2022-07-04 14:30:01 Outpatient Phil Trevizo [facility] [id number] [facility] 2022-02-01 13:58:05 Outpatient Phil Trevizo [facility] [id number] [facility] 2024-12-31 00:00:00 2024-12-31 00:00:00 OFFICE VISIT ESTAB PT LEVEL 4 [facility] ST[facility] [id number] [facility] 2024-11-11 00:00:00 2024-11-11 00:00:00 OFFICE VISIT ESTAB PT LEVEL 3 [facility] ST[facility] [id number] [facility] 2024-11-11 00:00:00 2024-11-11 00:00:00 (TEL) STLMLC STL[facility]C [id number] [facility] 2024-10-07 00:00:00 2024-10-07 00:00:00 OFFICE VISIT ESTAB PT LEVEL 3 [facility]C STL[facility]C [id number] [facility] 2024-09-30 00:00:00 2024-09-30 00:00:00 OFFICE VISIT ESTAB PT LEVEL 4 [facility]C STLMLC [id number] [facility] 2024-09-30 00:00:00 2024-09-30 00:00:00 SUB ANNUAL MCR WELLNESS VISIT STLMLC STLMLC [id number] [facility] 2024-08-28 00:00:00 2024-08-28 00:00:00 OFFICE VISIT ESTAB PT LEVEL 4 [facility]C STL[facility]C [id number] [facility] 2024-06-30 00:00:00 2024-06-30 00:00:00 OFFICE VISIT ESTAB PT LEVEL 4 [facility]C STL[facility]C [id number] [facility] 2024-06-20 00:00:00 2024-06-20 00:00:00 OFFICE VISIT ESTAB PT LEVEL 3 [facility]C STL[facility]C [id number] [facility] 2024-06-05 00:00:00 2024-06-05 00:00:00 OFFICE VISIT ESTAB PT LEVEL 3 [facility]C STL[facility]C [id number] [facility] 2024-04-30 00:00:00 2024-04-30 00:00:00 OFFICE VISIT ESTAB PT LEVEL 4 [facility]C STL[facility]C [id number] [facility] 2024-04-24 00:00:00 2024-04-24 00:00:00 NON-BILLAB LE VISIT STLMLC STLMLC [id number] [facility] 2024-04-01 00:00:00 2024-04-01 00:00:00 OFFICE VISIT ESTAB PT LEVEL 4 STLMLC STLMLC [id number] [facility] 2024-03-18 00:00:00 2024-03-18 00:00:00 NON-BILLAB LE VISIT STLMLC STLMLC [id number] [facility] 2024-03-11 00:00:00 2024-03-11 00:00:00 (TEL) STLMLC STLMLC [id number] [facility] 2024-02-19 00:00:00 2024-02-19 00:00:00 OFFICE VISIT ESTAB PT LEVEL 4 STLMLC STLMLC [id number] [facility] 2024-02-18 00:00:00 2024-02-18 00:00:00 (PO) Post Op STLMLC STLMLC [id number] [facility] 2024-02-04 00:00:00 2024-02-04 00:00:00 NON-BILLAB LE VISIT STLMLC STLMLC [id number] [facility] 2024-01-31 00:00:00 2024-01-31 00:00:00 (TEL) STLMLC STLMLC [id number] [facility] 2024-01-16 00:00:00 2024-01-16 00:00:00 (TEL) STLMLC STLMLC [id number] [facility] 2024-01-14 00:00:00 2024-01-14 00:00:00 OFFICE VISIT ESTAB PT LEVEL 4 STLMLC STLMLC [id number] [facility] 2024-01-10 00:00:00 2024-01-10 00:00:00 (TEL) STLMLC STLMLC [id number] [facility] 2024-01-07 00:00:00 2024-01-07 00:00:00 OFFICE VISIT ESTAB PT LEVEL 3 STLMLC STLMLC [id number] [facility] 2024-01-02 00:00:00 2024-01-02 00:00:00 (TEL) STLMLC STLMLC [id number] [facility] 2024-01-01 00:00:00 2024-01-01 00:00:00 (TEL) STLMLC STLMLC [id number] [facility] 2023 09:30:00 2023 10:22:39 Outpatient KENYA GRAJEDA [facility] [id number] [facility] 2023 09:30:00 2023 10:22:39 Office Visit Kenya Rivera [facility] [id number] [facility] 2023-12-18 00:00:00 2023-12-18 00:00:00 OFFICE VISIT ESTAB PT LEVEL 3 STLMLC STLMLC [id number] [facility] 2023-12-11 00:00:00 2023-12-11 00:00:00 (TEL) STLMLC STLMLC [id number] [facility] 2023-12-07 00:00:00 2023-12-07 00:00:00 (TEL) STLMLC STLMLC [id number] [facility] 2023-12-04 00:00:00 2023-12-04 00:00:00 (TEL) STLMLC STLMLC [id number] [facility] 2023-12-04 00:00:00 2023-12-04 00:00:00 (TEL) STLMLC STLMLC [id number] [facility] 2023-11-29 00:00:00 2023-11-29 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 STLMLC STLMLC [id number] [facility] 2023-11-22 00:00:00 2023-11-22 00:00:00 (TEL) STLMLC STLMLC [id number] [facility] 2023-11-19 00:00:00 2023-11-19 00:00:00 (TEL) STLMLC STLMLC [id number] [facility] 2023-11-08 00:00:00 2023-11-08 00:00:00 (TEL) STLMLC STLMLC [id number] [facility] 2023-11-01 00:00:00 2023-11-01 00:00:00 (TEL) STLMLC STLMLC [id number] [facility] 2023-10-29 00:00:00 2023-10-29 00:00:00 OFFICE VISIT ESTAB PT LEVEL 4 STLMLC STLMLC [id number] [facility] 2023-10-29 00:00:00 2023-10-29 00:00:00 SUB ANNUAL [facility] WELLNESS VISIT STLMLC STLMLC [id number] [facility] 2023-10-15 00:00:00 2023-10-15 00:00:00 OFFICE VISIT ESTAB PT LEVEL 3 STLMLC STLMLC [id number] [facility] 2023-08-31 00:00:00 2023-08-31 00:00:00 OFFICE VISIT ESTAB PT LEVEL 3 STLMLC STLMLC [id number] [facility] 2023-08-29 00:00:00 2023-08-29 00:00:00 OFFICE VISIT ESTAB PT LEVEL 3 STLMLC STLMLC [id number] [facility] 2023-08-29 00:00:00 2023-08-29 00:00:00 (TEL) STLMLC STLMLC [id number] [facility] 2023-08-17 00:00:00 2023-08-17 00:00:00 OFFICE VISIT ESTAB PT LEVEL 4 STLMLC STLMLC [id number] [facility] 2023-07-18 00:00:00 2023-07-18 00:00:00 OFFICE VISIT NEW PT LEVEL 4 STLMLC STLMLC [id number] [facility] 2023-04-20 00:00:00 2023-04-20 00:00:00 OFFICE VISIT ESTAB PT LEVEL 1 STLMLC STLMLC [id number] [facility] 2023-02-21 00:00:00 2023-02-21 00:00:00 (TEL) STLMLC STLMLC [id number] [facility] 2023-02-15 00:00:00 2023-02-15 00:00:00 OFFICE VISIT ESTAB PT LEVEL 5 STLMLC STLMLC [id number] [facility] 2023-01-17 00:00:00 2023-01-17 00:00:00 OFFICE VISIT ESTAB PT LEVEL 5 STLMLC STLMLC [id number] [facility] 2022-11-15 00:00:00 2022-11-15 00:00:00 OFFICE VISIT ESTAB PT LEVEL 4 STLMLC STLMLC [id number] [facility] 2022-10-18 00:00:00 2022-10-18 00:00:00 (PROC) Procedure STLMLC STLMLC [id number] [facility] 2022-08-29 00:00:00 2022-08-29 00:00:00 (TEL) STLMLC STLMLC [id number] [facility] 2022-08-20 00:00:00 2022-08-20 00:00:00 (TEL) STLMLC STLMLC [id number] [facility] 2022-08-17 00:00:00 2022-08-17 00:00:00 OFFICE VISIT ESTAB PT LEVEL 4 STLMLC STLMLC [id number] [facility] 2022-03-30 00:00:00 2022-03-30 00:00:00 OFFICE VISIT ESTAB PT LEVEL 4 STLMLC STLMLC [id number] [facility] 2022-02-01 00:00:00 2022-02-01 00:00:00 OFFICE VISIT NEW PT LEVEL 3 STLMLC STLMLC [id number] [facility] 2020-06-28 14:20:00 2020-06-28 14:12:51 Outpatient RAFI HUDDLESTON [facility] [id number] [facility] Results Test Description Test Time Test Comments Results Result Co mments Source [facility] CANCERTESTOSTERONE,MALE,[id number] 04:07:00* Test Item Value Reference Range Interpretation Comme nts TESTOSTERONE, TOTAL, MALES (ADULT), IA (test code = 85849421) <10 ng/dL 250-827 L In hypogonadal m ales, Testosterone, Total, LC/MS/MS,is the recommended assay due to the diminishedaccuracy of immunoassay at levels below 250 ng/dL.This test code (51038) must be collected in ared-top tube with no gel. [facility],25-OH,TOTAL,[id number] 01:28:00* Test Item Value Reference Range Interpretation Comme nts VITAMIN D,25-OH,TOTAL,IA (test code = 87113091) 40 ng/mL 30-100 N Vitamin D Status 25-OH Vitamin D: Deficiency: <20 ng/mLInsufficiency: 20 - 29 ng/mLOptimal: > or = 30 ng/mL For 25-OH Vitamin D testing on patients on D2-supplementation and patients for whom quantitation of D2 and D3 fractions is required, the QuestAssureD(TM)25-OH VIT D, (D2,D3), LC/MS/MS is recommended: order code 36316 (patients >2yrs). See Note 1 Note 1 For additional information, please refer to http://education.deltamethod/faq/NSZ822 (This link is being provided for informational/educationa l purposes only.) [facility] CANCERALKALINE [id number] 01:28:00* Test Item Value Reference Range Interpretation Comme nts ALKALINE PHOSPHATASE (test c ode = [id number]) 65 U/L 35-144 N [facility] CANCERTESTOSTERONE,MALE,[id number] 01:28:00* Test Item Value Reference Range Interpretation Comme nts TESTOSTERONE, TOTAL, MALES ( ADULT), IA (test code = 90332735) 307 ng/dL 250-827 N [facility] CANCERPSA, [id number] 01:28:00* Test Item Value Reference Range Interpretation Comme nts PSA, TOTAL (test code = 05967815) 6.16 ng/mL <=4.00 H The total PSA v alue from this assay system is standardized against the WHO standard. The test result will be approximately 20% lower when compared to the equimolar-standardized total PSA (Janeth Rock). Comparison of serial PSA results should be interpreted with this fact in mind. This test was performed using the Siemens chemiluminescent method. Values obtained from different assay methods cannot be usedinterchangeably. PSA levels, regardless ofvalue, should not be interpreted as absoluteevidence of the presence or absence of disease. [facility]
[2025-01-26] MEDS ORDERED: NA CHLORIDE 0.9% 500 ML ONE (11:23)
[2025-01-26 11:44] LABS: Absolute Lymphocytes (CBC) 0.8 K/uL (0.7-4.9); Hematocrit 34.9 % (39.6-49.0); Hemoglobin 11.2 g/dL (13.6-17.9); MCH 28.0 pg (27.0-35.0); MCHC 32.2 g/dL (32.0-36.0); MCV 87.1 fL (80-100); MPV 8.0 fL (7.6-11.3); Nucleated RBC Absolute Count 0.0 (0-0); Nucleated Red Blood Cells % 0.0 % (0-0); RBC Red Blood Cell Count 4.01 M/uL (4.33-5.43); White Blood Count 5.10 thou/uL (4.3-10.9)
[2025-01-26] MEDS ORDERED: METHYLPREDNISOLONE 125 MG INJ ONE (12:05)
[2025-01-26 12:22] LABS: PT Prothrombin Time 14.5 SECONDS (10-13.0); Protime INR 1.29
[2025-01-26 12:39] LABS: Anion Gap 9.5 mEq/L (5.0-15.0); BUN Blood Urea Nitrogen 22.0 mg/dL (7-18); Glucose Level 252.0 mg/dL (74-106); NT PRO-BNP 747.0 pg/mL (<450); Potassium 3.5 mEq/L (3.5-5.1); Troponin High Sensitivity 10.1 pg/mL (<58.9)
--- NOTE | 2025-01-26 12:50 | RAD REPORT ---
EXAMINATION: ONE VIEW CHEST XR CLINICAL INDICATION: Male, 79 years old.,PALPITATIONS TECHNIQUE: Frontal chest projection is submitted. Examination is limited by patient positioning and t echnique. COMPARISON: 01/02/2025 FINDINGS: The lungs are well inflated and clear. No pneumothorax or sizable effusion. The heart is normal in s ize. Mediastinal contours are unremarkable. IMPRESSION: No acute intrathoracic abnormalities.
[2025-01-26] MEDS ORDERED: NA CHLORIDE 0.9% 250 ML ONE (14:11)
--- NOTE | 2025-01-26 15:01 | ER ---
Nurse's Notes [facility] Name: Epi Li Age: 79 yrs Sex: Male : 1945 Arrival Date: 01/26/2025 Time: 10:58 Bed 2 Private MD: Diagnosis: Paroxysmal atrial fibrillation;Hypotension, unspecified;Dizziness and giddiness Presentation: 01/26 11:07 Chief complaint: Patient states: patient brought in by EMS for hypotension and ar8 dizziness that began at the cardiology clinic. Per EMS, they were informed that patient had a BP of 60/40. Patient's VSS at triage. Patient has no complaints at this time. 11:07 Coronavirus screen: At this time, the client does not indicate any symptoms associated ar8 with coronavirus-19. Ebola Screen: No symptoms or risks identified at this time. Initial Sepsis Screen: Does the patient meet any 2 criteria? No. Patient's initial sepsis screen is negative. Does the patient have a suspected source of infection? No. Patient's initial sepsis screen is negative. Risk Assessment: Do you want to hurt yourself or someone else? Patient reports no desire to harm self or others. Onset of symptoms was January 26, 2025. 11:07 Method Of Arrival: EMS: [facility] ar8 11:07 Acuity: KUNAL 3 ar8 Triage Assessment: 11:07 General: Appears in no apparent distress. Behavior is calm, cooperative. Pain: Denies ar8 pain. Neuro: Level of Consciousness is awake, alert, obeys commands, Oriented to person, place, time, situation. Cardiovascular: Patient's skin is warm and dry. 11:07 Respiratory: Airway is patent Respiratory effort is even, unlabored, Respiratory ar8 pattern is regular, symmetrical. GI: No signs and/or symptoms were reported involving the gastrointestinal system. : No signs and/or symptoms were reported regarding the genitourinary system. Derm: No signs and/or symptoms reported regarding the dermatologic system. Historical: - Allergies: 11:44 Bactrim; ar8 11:44 Levofloxacin; ar8 11:44 sulfamethoxazole-trimethoprim; ar8 - Home Meds: 11:44 omeprazole 20 mg Oral cpDR 1 cap once daily for Gastroesophageal reflux [Active]; ar8 metformin 500 mg Oral tab 1 tab 2 times per day for Type 2 Diabetes Mellitus [Active]; - PMHx: 11:44 Hypertension; Diabetes - NIDDM; High Cholesterol; ar8 - Immunization history:: Adult Immunizations up to date. - Infectious Disease History:: Denies. - Family history:: not pertinent. - Social history:: Smoking status: Patient denies any tobacco usage or history of. - Hospitalizations: : No recent hospitalization is reported. Screenin:46 [facility] ED Fall Risk Assessment (Adult) History of falling in the last 3 months, ar8 including since admission No falls in past 3 months (0 pts) Confusion or Disorientation No (0 pts) Intoxicated or Sedated No (0 pts) Impaired Gait No (0 pts) Mobility Assist Device Used No (0 pt) Altered Elimination No (0 pt) Score/Fall Risk Level 0 - 2 = Low Risk Oriented to surroundings, Maintained a safe environment. Abuse screen: Denies threats or abuse. Nutritional screening: No deficits noted. Tuberculosis screening: No symptoms or risk factors identified. Assessment: 11:46 Derm: Rash noted that is red, on abdomen, right arm and left arm. ar8 Vital Signs: 11:07 BP 95 / 70; Pulse 86; Resp 16; Temp 97.6(O); Pulse Ox 98% on R/A; Weight 73.48 kg; ar8 Height 5 ft. 9 in. ; Pain 0/10; 12:00 BP 98 / 64; Pulse 76; Resp 16; Pulse Ox 98% on R/A; Pain 0/10; ar8 13:00 BP 113 / 64; Pulse 70; Resp 16; Pulse Ox 97% on R/A; Pain 0/10; ar8 14:00 BP 98 / 62; Pulse 74; Resp 15; Pulse Ox 94% on R/A; Pain 0/10; ar8 14:15 BP 107 / 82; Pulse 81; Resp 16; Pulse Ox 95% on R/A; Pain 0/10; ar8 14:57 BP 114 / 73; rn 15:00 BP 116 / 78; Pulse 77; Resp 16; Pulse Ox 95% on R/A; Pain 0/10; ar8 11:07 Body Mass Index 23.92 (73.48 kg, 175.26 cm) ar8 11:07 Pain Scale: Adult ar8 12:00 Pain Scale: Adult ar8 13:00 Pain Scale: Adult ar8 14:00 Pain Scale: Adult ar8 14:15 Pain Scale: Adult ar8 15:00 Pain Scale: Adult ar8 ED Course: 11:07 Arm band placed on right wrist. ar8 11:07 Bed in low position. Call light in reach. Side rails up X2. Provided Education on: plan ar8 of care, diagnostics and estimated wait time. 11:07 Client placed on continuous cardiac and pulse oximetry monitoring. NIBP monitoring ar8 applied. 11:09 Patient arrived in ED. ty 11:09 Naveed Kim MD is Attending Physician. rn 11:29 EKG done, by ED staff, reviewed by Naveed Kim MD. ar8 11:37 No provider procedures requiring assistance completed. Initial lab(s) drawn, by me, ar8 sent to lab. Maintain EMS IV. Dressing intact. Good blood return noted. Site clean \T\ dry. Gauge \T\ site: 22G left hand and 20G R FA. Flushed with 10 mL NS. 11:41 Jose Randall, RN is Primary Nurse. ar8 11:44 Triage completed. ar8 12:18 XRAY Chest (1 view) In Process Unspecified. EDMS 15:28 IV discontinued, intact, bleeding controlled, No redness/swelling at site. Pressure ar8 dressing applied. Administered Medications: 11:30 Drug: NS 0.9% IV 500 ml 500 ml IV at 1 bolus once; to be given as a bolus over 30 ar8 minutes Volume: 500 ml; Route: IV; Rate: 1 bolus; Site: right forearm; 12:15 Follow up: Response: No adverse reaction; IV Status: Completed infusion; IV Intake: ar8 500ml 12:13 Drug: MethylPrednisoLONE IVP 125 mg IVP once Route: IVP; Site: right forearm; ar8 13:00 Follow up: Response: No adverse reaction ar8 14:22 Drug: NS 0.9% IV 250 ml IV at bolus once; to be given as a bolus over 30 minutes Route: ar8 IV; Rate: bolus; Site: right forearm; 15:00 Follow up: Response: No adverse reaction; IV Status: Completed infusion; IV Intake: ar8 250ml Medication: 11:46 VIS not applicable for this client. ar8 Intake: 12:15 IV: 500ml; Total: 500ml. ar8 15:00 IV: 250ml; Total: 750ml. ar8 Outcome: 15:01 Discharge ordered by . rn 15:28 Discharged to home via wheelchair, ar8 15:28 Condition: stable 15:28 Discharge instructions given to patient, Instructed on discharge instructions, follow ar8 up and referral plans. medication usage, Demonstrated understanding of instructions, follow-up care, medications, Prescriptions given X 1, 15:33 Patient left the ED. ar8 Signatures: Dispatcher [employer] EDMS Naveed Kim MD MD rn Yandell, Tylor ty Rodriguez, Andrea RN RN ar8
--- NOTE | 2025-01-26 15:01 | EDPHYS ---
Physician Documentation [facility] Name: Epi Li Age: 79 yrs Sex: Male : 1945 Arrival Date: 01/26/2025 Time: 10:58 Bed 2 Private MD: ED Physician Naveed Kim HPI: 01/26 11:32 This 79 yrs old Male presents to ER via Unassigned with complaints of low blood rn pressure. 11:32 Patient brought from cardiology clinic for episode of hypotension. Patient was in rn atrial fibrillation earlier today and possibly in clinic. Blood pressure was low and EMS was called for transport here. Patient reports does not feel like he is in atrial fibrillation anymore, denies chest pain or shortness of breath. Blood pressure is slowly improving and does not feel dizzy anymore unless he tries to stand up.. Historical: - Allergies: 11:44 Bactrim; ar8 11:44 Levofloxacin; ar8 11:44 sulfamethoxazole-trimethoprim; ar8 - Home Meds: 11:44 omeprazole 20 mg Oral cpDR 1 cap once daily for Gastroesophageal reflux [Active]; ar8 metformin 500 mg Oral tab 1 tab 2 times per day for Type 2 Diabetes Mellitus [Active]; - PMHx: 11:44 Hypertension; Diabetes - NIDDM; High Cholesterol; ar8 - Immunization history:: Adult Immunizations up to date. - Infectious Disease History:: Denies. - Family history:: not pertinent. - Social history:: Smoking status: Patient denies any tobacco usage or history of. - Hospitalizations: : No recent hospitalization is reported. ROS: 11:32 Constitutional: Negative for fever, chills, and weight loss, Cardiovascular: Negative rn for chest pain, palpitations, and edema, Respiratory: Negative for shortness of breath, cough, wheezing, and pleuritic chest pain, Abdomen/GI: Negative for abdominal pain, nausea, vomiting, diarrhea, and constipation, MS/Extremity: Negative for injury and deformity, Neuro: Negative for headache, weakness, numbness, tingling, and seizure, Exam: 11:32 Constitutional: This is a well developed, well nourished patient who is awake, alert, rn and in no acute distress. Head/Face: Normocephalic, atraumatic. Cardiovascular: Regular rate and rhythm. No pulse deficits. Respiratory: Speaking full sentences, unlabored. Abdomen/GI: Soft, nontender, no masses MS/ Extremity: Pulses equal, no cyanosis. Neurovascular intact. Full, normal range of motion. Equal circumference. Neuro: Awake and alert, GCS 15, oriented to person, place, time, and situation. 14:32 ECG was reviewed by the Attending Physician. rn Vital Signs: 11:07 BP 95 / 70; Pulse 86; Resp 16; Temp 97.6(O); Pulse Ox 98% on R/A; Weight 73.48 kg; ar8 Height 5 ft. 9 in. ; Pain 0/10; 12:00 BP 98 / 64; Pulse 76; Resp 16; Pulse Ox 98% on R/A; Pain 0/10; ar8 13:00 BP 113 / 64; Pulse 70; Resp 16; Pulse Ox 97% on R/A; Pain 0/10; ar8 14:00 BP 98 / 62; Pulse 74; Resp 15; Pulse Ox 94% on R/A; Pain 0/10; ar8 14:15 BP 107 / 82; Pulse 81; Resp 16; Pulse Ox 95% on R/A; Pain 0/10; ar8 14:57 BP 114 / 73; rn 15:00 BP 116 / 78; Pulse 77; Resp 16; Pulse Ox 95% on R/A; Pain 0/10; ar8 11:07 Body Mass Index 23.92 (73.48 kg, 175.26 cm) ar8 11:07 Pain Scale: Adult ar8 12:00 Pain Scale: Adult ar8 13:00 Pain Scale: Adult ar8 14:00 Pain Scale: Adult ar8 14:15 Pain Scale: Adult ar8 15:00 Pain Scale: Adult ar8 MDM: 11:09 Medical Screening Exam initiated rn 14:11 Differential Diagnosis Dehydration, A-fib RVR. Data reviewed: vital signs, nurses rn notes, lab test result(s), EKG, radiologic studies, plain films. Consideration of Admission/Observation Escalation of care including admission/observation considered. Admission considered but patient no longer in atrial fibrillation with rapid ventricular rate, likely combined with volume depletion. Blood pressures ranging 98-1 06 systolic patient feels much better and denies dizziness. Will give another 250 cc bolus and reevaluate. Patient would like to go home.. Independent interpretation of the following test(s) in the Emergency Department EKG: See my EKG interpretation above X-Ray: My interpretation is Chest x-ray images negative for pneumonia or pneumothorax per my interpretation. 14:12 Independent interpretation of the following test(s) in the Emergency Department steel burner monitor: rate is 75 beats/min, Rhythm is normal sinus rhythm, regular, with no ectopy, Interpretation: normal rate, normal rhythm. 15:00 Counseling: I had a detailed discussion with the patient and/or guardian regarding the rn historical points, exam findings, and any diagnostic results supporting the discharge/admit diagnosis, lab results, radiology results, the need for outpatient follow up, to return to the emergency department if symptoms worsen or persist or if there are any questions or concerns that arise at home. Response to treatment: the patient's symptoms have markedly improved after treatment, the patient's symptoms have resolved after treatment, the patient's condition has returned to base line, and as a result, I will discharge patient. Special discussion: I discussed with the patient/guardian in detail that at this point there is no indication for admission to the hospital. It is understood, however, that if the symptoms persist or worsen the patient needs to return immediately for re-evaluation. Based on the history and exam findings, there is no indication for further emergent testing or inpatient evaluation. I discussed with the patient/guardian the need to see the thread separator for further evaluation of the symptoms. I discussed with the patient/guardian the need to see the primary care provider for further evaluation of the symptoms. ED course: Patient feels much better, last blood pressure 114/73 is sitting up and denies dizziness. Steroids helped rash which family and their doctors think is drug-related rash. Will send home with prednisone and return precautions.. 01/26 11:16 Order name: Basic Metabolic Panel; Complete Time: 13:20 rn 01/26 11:16 Order name: CBC with Diff; Complete Time: 11:50 rn 01/26 11:16 Order name: NT PRO-BNP; Complete Time: 13:20 rn 01/26 11:16 Order name: PT-INR; Complete Time: 12:35 rn 01/26 11:16 Order name: Troponin HS; Complete Time: 13:20 rn 01/26 11:16 Order name: XRAY Chest (1 view); Complete Time: 13:20 rn 01/26 11:16 Order name: Cardiac monitoring; Complete Time: 11:40 rn 01/26 11:16 Order name: EKG - Nurse/Tech; Complete Time: :40 rn 01/26 11:16 Order name: IV Saline Lock; Complete Time: :40 rn 01/26 11:16 Order name: Labs collected and sent; Complete Time: :40 rn 01/26 11:16 Order name: O2 Per Protocol; Complete Time: :40 rn 01/26 11:16 Order name: O2 Sat Monitoring; Complete Time: 11:40 rn EC:32 Rate is 81 beats/min. Rhythm is regular. CT interval is normal. QRS interval is normal. rn No Q waves. T waves are Normal. No ST changes noted. Clinical impression: NSR w/ Non-specific ST/T Changes. Interpreted by me. Reviewed by me. Administered Medications: 11:30 Drug: NS 0.9% IV 500 ml 500 ml IV at 1 bolus once; to be given as a bolus over 30 ar8 minutes Volume: 500 ml; Route: IV; Rate: 1 bolus; Site: right forearm; 12:15 Follow up: Response: No adverse reaction; IV Status: Completed infusion; IV Intake: ar8 500ml 12:13 Drug: MethylPrednisoLONE IVP 125 mg IVP once Route: IVP; Site: right forearm; ar8 13:00 Follow up: Response: No adverse reaction ar8 14:22 Drug: NS 0.9% IV 250 ml IV at bolus once; to be given as a bolus over 30 minutes Route: ar8 IV; Rate: bolus; Site: right forearm; 15:00 Follow up: Response: No adverse reaction; IV Status: Completed infusion; IV Intake: ar8 250ml Disposition Summary: 01/26/25 15:01 Discharge Ordered Notes: Location: Home rn Problem: new rn Symptoms: have improved rn Condition: Stable rn Diagnosis - Paroxysmal atrial fibrillation rn - Hypotension, unspecified rn - Dizziness and giddiness rn Followup: rn - With: Private Physician - When: As needed - Reason: Recheck today's complaints, Re-evaluation by your physician Discharge Instructions: - Discharge Summary Sheet rn - Atrial Fibrillation rn - Dizziness rn - Hypotension rn Forms: - Medication Reconciliation Form rn - Antibiotic learning and development manager - Prescription Opioid Use rn - Patient Portal Instructions rn - Leadership Thank You Letter rn Prescriptions: - Prednisone 20 mg Oral Tablet - take 3 tablets ORAL route once daily for 5 days; 15 tablet; Refills: 0, Product rn Selection Permitted Signatures: Dispatcher [employer] EDMS Naveed Kim MD MD rn Rodriguez, Andrea, RN RN ar8 Corrections: (The following items were deleted from the chart) 11:17 11:17 BASIC METABOLIC PANEL+C.LAB.BRZ ordered. EDMS EDMS 11:17 11:17 CBC+H.LAB.BRZ ordered. EDMS EDMS 11: 11:17 PROBNP+C.LAB.BRZ ordered. EDMS EDMS 11:17 11:17 PROTIME (+INR)+COAG.LAB.BRZ ordered. EDMS EDMS 11:17 11:17 Troponin High Sensitivity+C.LAB.BRZ ordered. EDMS EDMS 11:17 11:17 Chest Single View+RAD.RAD.BRZ ordered. EDMS EDMS
[2025-01-26 18:30] VITALS: TEMP 97.6
[2025-01-26 18:37] VITALS: O2SAT 95
[2025-01-26 18:40] VITALS: BP 116/78
== END 2025-01-26 15:33 | disposition home or self-care (01) ==
LOC: ER 10:58
DX: I48.0 Paroxysmal atrial fibrillation (principal); I95.9 Hypotension, unspecified; R42 Dizziness and giddiness; I10 Essential (primary) hypertension; E11.9 Type 2 diabetes mellitus without complications; E78.00 Pure hypercholesterolemia, unspecified; Z88.1 Allergy status to other antibiotic agents; Z88.2 Allergy status to sulfonamides; K21.9 Gastro-esophageal reflux disease without esophagitis
CPT/HCPCS: 96361; 93005; 85025; 80048; 36415; 85610; 84484; 83880; 71045; 96374; 99284; J2919; J7050; J7040